=== PATIENT | male | born 2005 | race Caucasian/White ===

== ENCOUNTER 2023-01-17 10:47 | Emergency (ER) | payer BC ==
[2023-01-17] MEDS ORDERED: Rabies Vaccine Human 2.5 UNITS VIAL IM ONE (12:30)
[2023-01-17] MEDS ORDERED: Rabies Immune Globulin/PF 300 UNITS/ML VIAL IM SCH (12:30)
[2023-01-17] MEDS ORDERED: Boostrix 0.5 ML (Tdap) VIAL (>/=7 yrs of age) ONE (12:57)
== END 2023-01-17 14:12 | disposition home or self-care (01) ==
LOC: CSHERS 10:47
DX: S61.451A Open bite of right hand, initial encounter (principal); W55.01XA Bitten by cat, initial encounter; Z23 Encounter for immunization; Z87.891 Personal history of nicotine dependence
CPT/HCPCS: 90375; 90471; 90675; 90715; 96372; 99283

== ENCOUNTER → 2023-01-19 | Day surgery (SDC) | payer BC ==
[~2023-01-19] MED LIST: Rabies Vaccine Human 2.5 UNITS VIAL IM ONE
== END ==
LOC: CSHER/OP 11:26
PROVIDERS: ATTEND Family Medicine
DX: Z23 Encounter for immunization (principal)
CPT/HCPCS: 90675

== ENCOUNTER → 2023-01-30 | Emergency (ER) | payer BC | LOC: CSHERS 20:02 | DX: Z23 Encounter for immunization (principal) | CPT/HCPCS: 90471; 90675 ==